=== PATIENT | female | born 1995 | race Caucasian/White ===

== ENCOUNTER 2017-12-04 11:24 | Emergency (ER) | payer OTHER ==
[~2017-12-04] VITALS: Ht 154.9 cm; Wt 47.2 kg
[2017-12-04 11:36] VITALS: Ht 154.9 cm; Wt 47.2 kg
[2017-12-04 13:42] LABS: microscopic required? YES; urine erythrocyte NEGATIVE (NEGATIVE)
[2017-12-04 13:47] LABS: PLATELET COUNT 273 x10^3mcL (130-400); RED CELL DISTRIBUTION WIDTH 12.4 % (11.5-14.5)
[2017-12-04 13:57] LABS: BASOPHIL % 0 % (0-2)
[2017-12-04 14:04] LABS: CALCIUM 9.4 mg/dL (8.5-10.1); CARBON DIOXIDE 22.7 mmol/L (21-32); CHLORIDE SERUM 109 mmol/L (98-107); CREATININE SERUM 0.8 mg/dL (0.6-1.0); GFR1 > 60 mL/min; GLUCOSE SERUM 130 mg/dL (74-106); POTASSIUM SERUM 3.7 mmol/L (3.5-5.1); SODIUM SERUM 139 mmol/L (136-145)
[2017-12-04 14:09] LABS: ALBUMIN 4.3 g/dL (3.4-5.0); ALKALINE PHOSPHATASE 79 U/L (46-116); ALT/SGPT 28 U/L (14-59); AST/SGOT 23 U/L (15-37); BILIRUBIN TOTAL 0.7 mg/dL (0.20-1.00); TOTAL PROTEIN, SERUM 7.6 g/dL (6.4-8.2)
[2017-12-04 14:20] LABS: LIPASE 39 IU/L (73-393)
[2017-12-04 18:30] VITALS: BP 104/66
== END 2017-12-04 18:30 | disposition home or self-care (01) ==
LOC: ED 11:24
PROVIDERS: Emergency Medicine
DX: R10.13 Epigastric pain (principal)
CPT/HCPCS: J2405; J3490; J7030; Q0092; Q9967

== ENCOUNTER 2018-07-20 13:34 | Emergency (ER) | payer OTHER ==
[~2018-07-20] VITALS: Ht 154.9 cm; Wt 51.3 kg
[2018-07-20 13:38] VITALS: Ht 154.9 cm; Wt 51.3 kg
[2018-07-20 14:56] LABS: BASOPHIL % 0.1 % (0-2); PLATELET COUNT 263 x10^3mcL (130-400); RED CELL DISTRIBUTION WIDTH 12.7 % (11.5-14.5)
[2018-07-20 15:05] LABS: CALCIUM 8.9 mg/dL (8.5-10.1); CARBON DIOXIDE 20.2 mmol/L (21-32); CHLORIDE SERUM 105 mmol/L (98-107); CREATININE SERUM 0.7 mg/dL (0.6-1.0); GFR1 > 60 mL/min; GLUCOSE SERUM 113 mg/dL (74-106); POTASSIUM SERUM 3.4 mmol/L (3.5-5.1); SODIUM SERUM 139 mmol/L (136-145)
[2018-07-20 15:10] LABS: ALBUMIN 4.3 g/dL (3.4-5.0); ALKALINE PHOSPHATASE 54 U/L (46-116); ALT/SGPT 35 U/L (14-59); AST/SGOT 24 U/L (15-37); BILIRUBIN TOTAL 0.4 mg/dL (0.20-1.00); LIPASE 44 IU/L (73-393); TOTAL PROTEIN, SERUM 7.2 g/dL (6.4-8.2)
[2018-07-20 18:00] VITALS: BP 96/54
== END 2018-07-20 18:05 | disposition home or self-care (01) ==
LOC: ED 13:34
PROVIDERS: Emergency Medicine
DX: K29.70 Gastritis, unspecified, without bleeding (principal)
CPT/HCPCS: J2270; J2405; J2765; J7030; Q0092